=== PATIENT | female | born 1950 ===

== ENCOUNTER 2022-09-20 14:46 | Outpatient (CLI) | payer OTHER ==
[~2022-09-20 14:46] MED LIST: PERCOCET 5/3251 TAB PO; SYNTHROID50 MCG PO
== END 2022-09-20 14:53 | disposition home or self-care (01) ==
LOC: MAMO-SONO 14:46
PROVIDERS: ATTEND Obstetrics & Gynecology Gynecology
DX: N60.11 Diffuse cystic mastopathy of right breast (principal); N60.12 Diffuse cystic mastopathy of left breast; Z12.31 Encounter for screening mammogram for malignant neoplasm of breast

== ENCOUNTER 2022-09-24 06:30 | Day surgery (SDC) | payer OTHER ==
[~2022-09-24] VITALS: Ht 170.2 cm; Wt 102.5 kg
[2022-09-24] MEDS ORDERED: IBU600 MG PO (10:42)
== END 2022-09-24 14:35 | disposition home or self-care (01) ==
LOC: CIR.AMB 06:30
PROVIDERS: ATTEND Obstetrics & Gynecology Gynecology
DX: N84.0 Polyp of corpus uteri (principal); N95.0 Postmenopausal bleeding; Z88.6 Allergy status to analgesic agent; Z88.0 Allergy status to penicillin; Z20.822 Contact with and (suspected) exposure to COVID-19; E11.9 Type 2 diabetes mellitus without complications

== ENCOUNTER 2022-10-08 10:46 | Outpatient (CLI) | payer OTHER ==
[~2022-10-08 10:46] MED LIST changes: +IBU600 MG PO
== END 2022-10-08 10:56 | disposition home or self-care (01) ==
LOC: SONOGRAMA 10:46
PROVIDERS: ATTEND Obstetrics & Gynecology Gynecology
DX: R92.2 Inconclusive mammogram (principal); N60.11 Diffuse cystic mastopathy of right breast; N60.12 Diffuse cystic mastopathy of left breast